=== PATIENT | female | born 1995 | race Two or more races ===

== ENCOUNTER 2020-07-16 00:39 | Emergency (ER) | payer OTHER ==
[~2020-07-16] VITALS: Ht 157.5 cm; Wt 70.0 kg
[2020-07-16 00:46] VITALS: BP 103/60
[2020-07-16] MEDS ORDERED: HYDROCODONE/ACETAMINOPHEN 5/325MG TABLET PO STA (01:19)
[2020-07-16] MEDS ORDERED: MAGNESIUM/ALUMINUM HYDROXIDE/SIMETHICONE 30ML UDC PO STA (01:19)
[2020-07-16 01:30] LABS: CLARITY URINE CLEAR (CLEAR); COLOR URINE YELLOW (YELLOW); KETONES URINE NEGATIVE (NEGATIVE); LEUKOCYTE ESTERASE URINE NEGATIVE (NEGATIVE); NITRITE URINE NEGATIVE (NEGATIVE); OCCULT BLOOD URINE 3+ (NEGATIVE); PH URINE 5.5 (4.5-8.0); PROTEIN URINE NEGATIVE (NEGATIVE); SPECIFIC GRAVITY URINE 1.013 (1.005-1.030); UROBILINOGEN URINE 0.2 E.U./dL (0.2-1.0)
== END 2020-07-16 04:10 | disposition left against medical advice (07) ==
LOC: ER 00:39
DX: R10.12 Left upper quadrant pain (principal); R11.2 Nausea with vomiting, unspecified
CPT/HCPCS: 81003; 81025; 93005; 99284